=== PATIENT | male | born 1945 | race Hispanic/Latino ===

== ENCOUNTER 2020-05-30 22:48 | Inpatient (IN) | payer MEDICARE ==
[~2020-05-30] VITALS: Ht 167.6 cm; Wt 104.3 kg
[2020-05-31 13:33] VITALS: BP 163/78
[2020-05-31] MEDS ORDERED: ACETAMINOPHEN 325 MG TAB PO PRN ×2 (15:30)
[2020-05-31] MEDS ORDERED: ONDANSETRON HCL 4 MG/2 ML VIAL IVP PRN (15:30)
[2020-05-31] MEDS ORDERED: GLUCAGON 1MG KIT 1 MG ML IM PRN (15:30)
[2020-05-31] MEDS ORDERED: DEXTROSE 50%-WATER 50 ML DISP.SYRIN IV PRN (15:30)
[2020-05-31 15:54] VITALS: BP 153/88
[2020-05-31] MEDS ORDERED: PHARMACY COMMUNICATION MISC SCH (16:00)
[2020-05-31 20:25] VITALS: BP 168/72
[2020-05-31] MEDS: INSULIN HUMULIN R 100 UNIT/ML 3ML SQ SCH ×2 (21:00→21:06)
[2020-05-31] MEDS: DOXYCYCLINE HYCLATE 100 MG TABLET PO SCH (21:17)
[2020-05-31] MEDS: FAMOTIDINE/PF 20 MG/2 ML VIAL IV SCH (21:17)
[2020-05-31] MEDS: METHYLPREDNISOLONE SOD SUCC 40MG/ML 1ML IVP SCH (21:17)
[2020-05-31 21:19] LABS: BASOPHILS % (AUTO) 0.3 % (0.0-5.0); HEMATOCRIT 34.9 % (42-54); LYMPHOCYTES % (AUTO) 6.5 % (21.0-51.0); MEAN CORPUSCULAR HEMOGLOBIN 29.8 pg (27.0-33.0); MEAN CORPUSCULAR HGB CONC 32.7 g/dL (32.0-36.0); MEAN CORPUSCULAR VOLUME 91.4 fL (79-99); MONOCYTES % (AUTO) 5.8 % (3.0-13.0); NEUTROPHILS % (AUTO) 86.4 % (40.0-77.0); PLATELET COUNT (AUTO) 222 K/uL (130-400); RED BLOOD CELL COUNT(AUTO) 3.82 MIL/uL (4.50-6.20); RED CELL DISTRIBUTION WIDTH 13.4 % (11.0-15.5); WHITE BLOOD COUNT (AUTO) 6.7 K/uL (4.8-10.8)
[2020-05-31 22:39] LABS: CARBON DIOXIDE 23 mmol/L (21-32); CHLORIDE 104 mmol/L (101-111); CREATININE 2.1 mg/dL (0.5-1.5); GLOMERULAR FILTR. RATE CALC 33 mL/min (>60); GLUCOSE,RANDOM 340 mg/dL (70-105); POTASSIUM 5.2 mmol/L (3.5-5.1); SODIUM SERUM 140 mmol/L (136-145); UREA NITROGEN, BLOOD 55 mg/dL (7-18)
[2020-05-31 22:43] LABS: ALANINE AMINOTRANSFERASE 35 U/L (12-78); ALBUMIN 3.2 g/dL (3.5-5.0); ASPARTATE AMINOTRANSFERASE 30 U/L (10-37); BILIRUBIN,TOTAL 0.3 mg/dL (0.2-1.0); LACTATE DEHYDROGENASE 309 U/L (81-234); TOTAL PROTEIN, SERUM 6.8 g/dL (6.0-8.3)
[2020-05-31 23:42] VITALS: BP 175/84
[2020-06-01 03:40] VITALS: BP 128/57
[2020-06-01 05:31] LABS: ALANINE AMINOTRANSFERASE 33 U/L (12-78); ASPARTATE AMINOTRANSFERASE 28 U/L (10-37); BILIRUBIN,TOTAL 0.4 mg/dL (0.2-1.0); CARBON DIOXIDE 24 mmol/L (21-32); CHLORIDE 103 mmol/L (101-111); GLOMERULAR FILTR. RATE CALC 35 mL/min (>60); GLUCOSE,RANDOM 352 mg/dL (70-105); LACTATE DEHYDROGENASE 313 U/L (81-234); SODIUM SERUM 138 mmol/L (136-145); TOTAL PROTEIN, SERUM 7.3 g/dL (6.0-8.3); UREA NITROGEN, BLOOD 51 mg/dL (7-18)
[2020-06-01] MEDS: INSULIN HUMULIN R 100 UNIT/ML 3ML SQ SCH ×4 (06:02→17:07)
[2020-06-01] MEDS: FAMOTIDINE/PF 20 MG/2 ML VIAL IV SCH ×2 (07:51→20:53)
[2020-06-01] MEDS: METHYLPREDNISOLONE SOD SUCC 40MG/ML 1ML IVP SCH ×3 (07:51→20:53)
[2020-06-01] MEDS: DOXYCYCLINE HYCLATE 100 MG TABLET PO SCH ×2 (07:51→20:53)
[2020-06-01 08:00] VITALS: BP 177/77
[2020-06-01] MEDS ORDERED: ENOXAPARIN SODIUM 40 MG/0.4 ML SYRINGE SQ SCH (09:00)
[2020-06-01] MEDS: LABETALOL 20 MG/4 ML DISP.SYRIN IV PRN (11:10)
[2020-06-01] MEDS ORDERED: LORAZEPAM 2 MG/ML 1 ML VIAL IVP SCH (13:00)
[2020-06-01 14:01] LABS: THYROID STIMULATING HORMONE 0.47 uIU/mL (0.36-3.74)
[2020-06-01] MEDS: CEFTRIAXONE SODIUM 1 GM IVP SCH (14:08)
[2020-06-01 16:00] VITALS: BP 176/71
[2020-06-01] MEDS: INSULIN NPH 100 UNIT/ML 3ML SQ SCH (17:05)
[2020-06-01] MEDS: ENOXAPARIN SODIUM 40 MG/0.4 ML SYRINGE SQ SCH (20:54)
[2020-06-01 21:40] VITALS: BP 172/72
[2020-06-01 23:17] VITALS: BP 179/87
[2020-06-02] VITALS (11 sets, daily range): BP systolic 148–197; BP diastolic 65–95
[2020-06-02] MEDS: CEFTRIAXONE SODIUM 1 GM IVP SCH ×2 (00:30→12:13)
[2020-06-02] MEDS: INSULIN HUMULIN R 100 UNIT/ML 3ML SQ SCH ×8 (04:13→21:58)
[2020-06-02] MEDS ORDERED: SIMV10TA97 PO (04:43)
[2020-06-02] MEDS ORDERED: LISI30TA4 PO (04:44)
[2020-06-02] MEDS ORDERED: HYDR-4153 PO (04:45)
[2020-06-02] MEDS ORDERED: [UNRECOGNIZED DRUG - CODE] PO (04:52)
[2020-06-02] MEDS ORDERED: GLIP10TA9 PO (04:53)
[2020-06-02] MEDS ORDERED: FURO20TA4 PO (04:53)
[2020-06-02] MEDS ORDERED: PIOG45TA64 PO (04:55)
[2020-06-02 05:41] LABS: ALANINE AMINOTRANSFERASE 37 U/L (12-78); ALBUMIN 3.1 g/dL (3.5-5.0); ASPARTATE AMINOTRANSFERASE 33 U/L (10-37); BILIRUBIN,TOTAL 0.3 mg/dL (0.2-1.0); CARBON DIOXIDE 23 mmol/L (21-32); CHLORIDE 104 mmol/L (101-111); CREATININE 1.8 mg/dL (0.5-1.5); GLOMERULAR FILTR. RATE CALC 39 mL/min (>60); GLUCOSE,RANDOM 290 mg/dL (70-105); LACTATE DEHYDROGENASE 302 U/L (81-234); POTASSIUM 4.5 mmol/L (3.5-5.1); SODIUM SERUM 138 mmol/L (136-145); TOTAL PROTEIN, SERUM 7.4 g/dL (6.0-8.3); UREA NITROGEN, BLOOD 52 mg/dL (7-18)
[2020-06-02] MEDS: INSULIN NPH 100 UNIT/ML 3ML SQ SCH ×2 (06:38→15:17)
[2020-06-02] MEDS: DOXYCYCLINE HYCLATE 100 MG TABLET PO SCH ×2 (07:54→21:35)
[2020-06-02] MEDS: METHYLPREDNISOLONE SOD SUCC 40MG/ML 1ML IVP SCH ×3 (07:54→21:34)
[2020-06-02] MEDS: FAMOTIDINE/PF 20 MG/2 ML VIAL IV SCH ×2 (07:55→21:34)
[2020-06-02] MEDS: LABETALOL 20 MG/4 ML DISP.SYRIN IV PRN ×2 (07:57→12:56)
[2020-06-02] MEDS: ENOXAPARIN SODIUM 40 MG/0.4 ML SYRINGE SQ SCH ×2 (07:58→21:36)
[2020-06-02] MEDS: PIOGLITAZONE HCL 45 MG TAB PO SCH (21:32)
[2020-06-02] MEDS: GLIPIZIDE 5 MG TABLET PO SCH (21:33)
[2020-06-02] MEDS: HYDRALAZINE HCL 25 MG TABLET PO SCH (21:34)
[2020-06-02] MEDS: LISINOPRIL 20 MG TABLET PO SCH (21:34)
[2020-06-03] VITALS (7 sets, daily range): BP systolic 155–201; BP diastolic 65–92
[2020-06-03] MEDS: CEFTRIAXONE SODIUM 1 GM IVP SCH ×2 (00:40→13:02)
[2020-06-03 06:01] LABS: ALANINE AMINOTRANSFERASE 53 U/L (12-78); ALBUMIN 3.2 g/dL (3.5-5.0); ASPARTATE AMINOTRANSFERASE 42 U/L (10-37); BILIRUBIN,TOTAL 0.3 mg/dL (0.2-1.0); CARBON DIOXIDE 23 mmol/L (21-32); CHLORIDE 106 mmol/L (101-111); GLOMERULAR FILTR. RATE CALC 35 mL/min (>60); GLUCOSE,RANDOM 310 mg/dL (70-105); LACTATE DEHYDROGENASE 326 U/L (81-234); POTASSIUM 4.4 mmol/L (3.5-5.1); SODIUM SERUM 141 mmol/L (136-145); TOTAL PROTEIN, SERUM 7.5 g/dL (6.0-8.3); UREA NITROGEN, BLOOD 56 mg/dL (7-18)
[2020-06-03] MEDS: INSULIN HUMULIN R 100 UNIT/ML 3ML SQ SCH ×7 (06:44→22:36)
[2020-06-03] MEDS: INSULIN NPH 100 UNIT/ML 3ML SQ SCH ×2 (06:45→17:07)
[2020-06-03 08:03] LABS: BASOPHILS % (AUTO) 0.1 % (0.0-5.0); HEMATOCRIT 39.1 % (42-54); LYMPHOCYTES % (AUTO) 3.7 % (21.0-51.0); MEAN CORPUSCULAR HEMOGLOBIN 30.2 pg (27.0-33.0); MEAN CORPUSCULAR HGB CONC 32.5 g/dL (32.0-36.0); MEAN CORPUSCULAR VOLUME 92.9 fL (79-99); MONOCYTES % (AUTO) 6.1 % (3.0-13.0); NEUTROPHILS % (AUTO) 88.6 % (40.0-77.0); NUCLEATED RED BLOOD CELLS 0.2 % (0.0-0.19); PLATELET COUNT (AUTO) 347 K/uL (130-400); RED BLOOD CELL COUNT(AUTO) 4.21 MIL/uL (4.50-6.20); RED CELL DISTRIBUTION WIDTH 13.2 % (11.0-15.5); WHITE BLOOD COUNT (AUTO) 12.1 K/uL (4.8-10.8)
[2020-06-03] MEDS: LISINOPRIL 20 MG TABLET PO SCH ×2 (08:32→21:23)
[2020-06-03] MEDS: FAMOTIDINE/PF 20 MG/2 ML VIAL IV SCH ×2 (08:32→21:25)
[2020-06-03] MEDS: METHYLPREDNISOLONE SOD SUCC 40MG/ML 1ML IVP SCH ×3 (08:32→21:25)
[2020-06-03] MEDS: FUROSEMIDE 20 MG TABLET PO SCH (08:32)
[2020-06-03] MEDS: GLIPIZIDE 5 MG TABLET PO SCH ×2 (08:33→21:22)
[2020-06-03] MEDS: DOXYCYCLINE HYCLATE 100 MG TABLET PO SCH ×2 (08:33→21:23)
[2020-06-03] MEDS: ENOXAPARIN SODIUM 40 MG/0.4 ML SYRINGE SQ SCH ×2 (08:33→21:33)
[2020-06-03] MEDS: HYDRALAZINE HCL 25 MG TABLET PO SCH ×2 (08:33→21:23)
[2020-06-03] MEDS: LABETALOL 20 MG/4 ML DISP.SYRIN IV PRN ×2 (10:58→17:12)
[2020-06-03] MEDS ORDERED: HYDRALAZINE HCL 20 MG/ML VIAL ONE (12:57)
[2020-06-03] MEDS ORDERED: HYDRALAZINE HCL 20 MG/ML VIAL IV PRN (15:00)
[2020-06-03] MEDS: PIOGLITAZONE HCL 45 MG TAB PO SCH (21:22)
[2020-06-04] MEDS: CEFTRIAXONE SODIUM 1 GM IVP SCH ×3 (00:47→23:45)
[2020-06-04 04:13] VITALS: BP 160/72
[2020-06-04] MEDS: INSULIN NPH 100 UNIT/ML 3ML SQ SCH ×2 (06:02→17:21)
[2020-06-04] MEDS: INSULIN HUMULIN R 100 UNIT/ML 3ML SQ SCH ×6 (06:12→20:51)
[2020-06-04 06:30] LABS: BASOPHILS % (AUTO) 0.1 % (0.0-5.0); HEMATOCRIT 38.3 % (42-54); LYMPHOCYTES % (AUTO) 3.4 % (21.0-51.0); MEAN CORPUSCULAR HEMOGLOBIN 29.8 pg (27.0-33.0); MEAN CORPUSCULAR HGB CONC 32.9 g/dL (32.0-36.0); MEAN CORPUSCULAR VOLUME 90.5 fL (79-99); NEUTROPHILS % (AUTO) 88.7 % (40.0-77.0); NUCLEATED RED BLOOD CELLS 0.3 % (0.0-0.19); PLATELET COUNT (AUTO) 339 K/uL (130-400); RED BLOOD CELL COUNT(AUTO) 4.23 MIL/uL (4.50-6.20); RED CELL DISTRIBUTION WIDTH 13.1 % (11.0-15.5); WHITE BLOOD COUNT (AUTO) 14.3 K/uL (4.8-10.8)
[2020-06-04 06:37] LABS: CREATININE 2.1 mg/dL (0.5-1.5); POTASSIUM 4.1 mmol/L (3.5-5.1)
[2020-06-04 08:00] VITALS: BP 168/75
[2020-06-04] MEDS: LISINOPRIL 20 MG TABLET PO SCH ×2 (08:51→20:50)
[2020-06-04] MEDS: GLIPIZIDE 5 MG TABLET PO SCH ×2 (08:51→20:49)
[2020-06-04] MEDS: FUROSEMIDE 20 MG TABLET PO SCH (08:51)
[2020-06-04] MEDS: DOXYCYCLINE HYCLATE 100 MG TABLET PO SCH ×2 (08:51→20:49)
[2020-06-04] MEDS: METHYLPREDNISOLONE SOD SUCC 40MG/ML 1ML IVP SCH ×3 (08:52→20:48)
[2020-06-04] MEDS: HYDRALAZINE HCL 25 MG TABLET PO SCH ×2 (08:52→20:49)
[2020-06-04] MEDS: FAMOTIDINE/PF 20 MG/2 ML VIAL IV SCH ×2 (08:52→20:48)
[2020-06-04] MEDS: ENOXAPARIN SODIUM 40 MG/0.4 ML SYRINGE SQ SCH ×2 (08:53→20:49)
[2020-06-04 10:30] VITALS: BP 175/78
[2020-06-04 18:35] VITALS: BP 135/80
[2020-06-04 19:44] VITALS: BP 149/83
[2020-06-04] MEDS: PIOGLITAZONE HCL 45 MG TAB PO SCH (20:49)
[2020-06-04 23:23] VITALS: BP 144/61
[2020-06-05 03:33] VITALS: BP 141/73
[2020-06-05] MEDS: INSULIN HUMULIN R 100 UNIT/ML 3ML SQ SCH ×6 (05:49→17:59)
[2020-06-05] MEDS: INSULIN NPH 100 UNIT/ML 3ML SQ SCH ×2 (05:51→17:59)
[2020-06-05] MEDS: LISINOPRIL 20 MG TABLET PO SCH (08:49)
[2020-06-05] MEDS: HYDRALAZINE HCL 25 MG TABLET PO SCH (08:49)
[2020-06-05] MEDS: FAMOTIDINE/PF 20 MG/2 ML VIAL IV SCH (08:49)
[2020-06-05] MEDS: DOXYCYCLINE HYCLATE 100 MG TABLET PO SCH (08:49)
[2020-06-05] MEDS: ENOXAPARIN SODIUM 40 MG/0.4 ML SYRINGE SQ SCH (08:50)
[2020-06-05] MEDS: FUROSEMIDE 20 MG TABLET PO SCH (08:50)
[2020-06-05] MEDS: METHYLPREDNISOLONE SOD SUCC 40MG/ML 1ML IVP SCH ×2 (08:50→15:30)
[2020-06-05] MEDS: GLIPIZIDE 5 MG TABLET PO SCH (08:50)
[2020-06-05] MEDS ORDERED: [UNRECOGNIZED DRUG - CODE] MC (11:45)
[2020-06-05] MEDS ORDERED: DEXA6TAB7 PO (11:45)
[2020-06-05] MEDS ORDERED: ASCO500T10 PO (11:45)
[2020-06-05] MEDS ORDERED: DOXY100T21 PO (11:45)
[2020-06-05] MEDS: CEFTRIAXONE SODIUM 1 GM IVP SCH (12:30)
== END 2020-06-05 18:10 | disposition home or self-care (01) | DRG 177 ==
LOC: 4AH 05-31 13:15
PROVIDERS: ADMIT Internal Medicine; ATTEND Internal Medicine
DX: U07.1 COVID-19 (principal); J12.9 Viral pneumonia, unspecified; J96.01 Acute respiratory failure with hypoxia; G93.41 Metabolic encephalopathy; E87.5 Hyperkalemia; E11.65 Type 2 diabetes mellitus with hyperglycemia; N18.3 Chronic kidney disease, stage 3 (moderate); E86.0 Dehydration; E11.22 Type 2 diabetes mellitus with diabetic chronic kidney disease; E66.9 Obesity, unspecified; Z68.38 Body mass index [BMI] 38.0-38.9, adult
CPT/HCPCS: 36415; 70450; 71045; 71250; 80048; 80053; 82140; 82550; 82607; 82728; 82746; 82948; 83615; 84145; 84443; 84484; 85025; 85378; 86140; 86850; 86900; 86901; 87486; 87581; 87633; 87798; 97039; G0378; J0360; J0696; J1650; J1815; J2060; J2920; J3490; U0003